=== PATIENT | female | born 1990 | race Caucasian/White ===

== ENCOUNTER 2018-06-09 21:01 | Inpatient (IN) | payer MEDICAID, OTHER ==
[2018-06-09 21:02] VITALS: BMI 25.2
[2018-06-09] MEDS ORDERED: Sodium Chloride 0.9% 1,000 ML IV ONE (21:46)
--- NOTE | 2018-06-09 21:46 | C.PDOC ---
History Of Present Illness 28 year old female presents to the ED c/o RUQ abdominal pain radiating to her back for the past 2 days. Patient denies fever, chills, nausea, vomit, diarrhea, dysuria, hematuria. Time Seen by Provider: 06/09/18 21:45 Chief Complaint (Nursing): Abdominal Pain History Per: Patient History/Exam Limitations: no limitations Onset/Duration Of Symptoms: Days Current Symptoms Are (Timing): Still Present Location Of Pain/Discomfort: RUQ Radiation Of Pain To:: Back Quality Of Discomfort: "Pain" Associated Symptoms: denies: Nausea, Vomiting, Diarrhea, Urinary Symptoms Recent travel outside of the [place]: No Additional History Per: Patient Abnormal Vaginal Bleeding: No Past Medical History Reviewed: Historical Data, Nursing Documentation, Vital Signs Vital Signs: Last Vital Signs Temp 98.2 F 06/09/18 21:27 Pulse 59 L 06/09/18 21:27 Resp 18 06/09/18 21:27 BP 116/78 06/09/18 21:27 Pulse Ox 100 06/09/18 21:27 - Medical History PMH: No Chronic Diseases Surgical History: No Surg Hx Family History: States: Unknown Family Hx - Social History Hx Alcohol Use: No Hx Substance Use: No - Immunization History Hx Tetanus Toxoid Vaccination: No Hx Influenza Vaccination: No Hx Pneumococcal Vaccination: No Review Of Systems Constitutional: Negative for: Fever, Chills Cardiovascular: Negative for: Chest Pain, Palpitations Respiratory: Negative for: Shortness of Breath Gastrointestinal: Positive for: Abdominal Pain. Negative for: Nausea, Vomiting, Diarrhea Genitourinary: Negative for: Dysuria Musculoskeletal: Positive for: Back Pain Skin: Negative for: Rash Neurological: Negative for: Weakness, Numbness Physical Exam - Physical Exam Appears: Non-toxic, No Acute Distress Skin: Warm, Dry Head: Normacephalic Eye(s): bilateral: Normal Inspection Oral Mucosa: Moist Neck: Supple Chest: Symmetrical Cardiovascular: Rhythm Regular Respiratory: No Rales, No Rhonchi, No Wheezing Gastrointestinal/Abdominal: Soft, Tenderness (RUQ), No Guarding, No Rebound Back: No CVA Tenderness Extremity: Bilateral: Atraumatic, Normal Color And Temperature, Normal ROM Neurological/Psych: Oriented x3, Normal Speech, Normal Cognition Gait: Steady ED Course And Treatment - Laboratory Results Result Diagrams: 06/09/18 22:40 06/09/18 22:40 O2 Sat by Pulse Oximetry: 100 (ON RA) Pulse Ox Interpretation: Normal - CT Scan/US CT abd/pelvis Other Rad Studies (CT/US): Read By Radiologist, Radiology Report Reviewed CT/US Interpretation: CT SCAN OF THE ABDOMEN AND PELVIS WITH CONTRAST. CLINICAL HISTORY: Patient with 2 days of right upper quadrant colonic quadrant pain. No nausea or vomiting. TECHNIQUE: Multiple axial and coronal CT images were obtained through the abdomen and pelvis after administration of intravenous contrast material. COMMENTS: Distended, mildly thickened gallbladder. The liver is of uniform attenuation without mass or defect. There is no intra or extrahepatic biliary ductal dilatation. The spleen is normal. The pancreas is of normal contour and attenuation characteristics. There is no evidence of adrenal mass. Both kidneys demonstrate prompt and equal nephrograms. The kidneys are normal in size, shape and configuration. There is no evidence of renal or ureteral mass. No renal or ureteral calculi are identified. There is no hydroureter or hydronephrosis. No evidence for appendicitis. There is no bowel wall thickening. No evidence for small or large bowel obstruction. There is no evidence of abdominal ascites or lymphadenopathy. There is no evidence of intrinsic or extrinsic bladder mass. There is no pelvic ascites or lymphadenopathy. Images of the lung bases show no evidence of pleural or parenchymal mass. There are no pleural effusions. The bony structures are free of lytic or blastic lesions. IMPRESSION: Distended, mildly thickened gallbladder. Sonographic evaluation is suggested. Acute inflammatory pathology of the gallbladder is suspected. Constipation. Thank you for your kind referral of this patient. . Electronically signed on Jun 10, 2018 2:45:24 AM EDT by: Greg Tirado M.D., Certified by ABR, MSK, Neuroradiology Progress Note: Plan: - Labs. - IV fluids. - UA Disposition Discussed With : Thanh Velez Comment: accepted the pt on his service and took over thecare at 4 AM Doctor Will See Patient In The: ED Counseled Patient/Family Regarding: Studies Performed, Diagnosis - Disposition Disposition: HOSPITALIZED Disposition Time: 21:46 Condition: FAIR Forms: [facility] (Azeri) - POA Present On Arrival: None - Clinical Impression Clinical Impression: Acute cholecystitis - Scribe Statement The provider has reviewed the documentation as recorded by the Scribe Mark Live All medical record entries made by the Scribe were at my direction and personally dictated by me. I have reviewed the chart and agree that the record accurately reflects my personal performance of the history, physical exam, medical decision making, and the department course for this patient. I have also personally directed, reviewed, and agree with the discharge instructions and disposition. Decision To Admit - Pt Status Changed To: Hospital Disposition Of: Inpatient - Admit Certification Admit to Inpatient:: After my assessment, the patient will require hospitalization for at least two midnights. This is because of the severity of symptoms shown, intensity of services needed, and/or the medical risk in this patient being treated as an outpatient. - InPatient: Physician Admission Certification:: After my assessment, the patient will require hospitalization for at least two midnights. This is because of the severity of symptoms shown, intensity of services needed, and/or the medical risk in this patient being treated as an outpatient. - . Bed Request Type: Regular Admitting Physician: Thanh Velez Patient Diagnosis: Acute cholecystitis
[2018-06-09] MEDS ORDERED: Sodium Chloride 0.9% 1,000 ML ONE (22:35)
[2018-06-09 22:45] LABS: BASO % 0.5 % (0.0-2.0); EOS # 0.1 K/uL (0.0-0.7); EOS % 1.8 % (0.0-4.0); HEMOGLOBIN 12.9 g/dL (11.0-16.0); LYMPH # 2.5 K/uL (1.0-4.3); LYMPH % 35.1 % (20.0-40.0); MEAN CELL VOLUME 85.9 fL (81.0-99.0); MEAN CORPUSCULAR HEMOGLOBIN 27.4 pg (27.0-31.0); MEAN CORPUSCULAR HGB CONC 31.9 g/dL (33.0-37.0); MEAN PLATELET VOLUME 7.7 fL (7.2-11.7); MONO # 0.4 K/uL (0.0-0.8); MONO % 6.4 % (0.0-10.0); NEUT % 56.2 % (50.0-75.0); NRBC % 0.1 % (0.0-2.0); RBC 4.72 Mil/uL (3.80-5.20); WHITE BLOOD COUNT 7.1 K/uL (4.8-10.8)
[2018-06-09 22:54] LABS: INR 1.1; PROTHROMBIN TIME 11.9 SECONDS (9.7-12.2)
[2018-06-09 22:55] LABS: HCG,QUALITATIVE URINE NEGATIVE (NEGATIVE)
[2018-06-09 22:56] LABS: ALBUMIN 4.8 g/dL (3.5-5.0); BLOOD UREA NITROGEN 14 mg/dL (7-17); CALCIUM 9.5 mg/dl (8.6-10.4); GFR NON-AFRICAN AMERICAN > 60
[2018-06-09 22:57] LABS: ALB/GLOB RATIO 1.4 (1.0-2.1); ALT/SGPT 10 U/L (9-52); AST/SGOT 24 U/L (14-36); LIPASE 86 U/L (23-300)
[2018-06-09 22:59] LABS: SQUAMOUS EPITHIAL 3 /hpf (0-5); URINE BILIRUBIN NEGATIVE (NEGATIVE); URINE BLOOD 1+ (NEGATIVE); URINE CLARITY Clear (Clear); URINE COLOR Straw (YELLOW); URINE GLUCOSE (UA) NORMAL (Normal); URINE LEUKOCYTE ESTERASE NEG Leu/uL (Negative); URINE PROTEIN NEGATIVE (NEGATIVE); URINE UROBILINOGEN NORMAL mg/dL (0.2-1.0)
[2018-06-09] MEDS ORDERED: Iodixanol 320 MG/ML 100 ML BOTTLE IV ONE (23:15)
[2018-06-10] MEDS ORDERED: Piperacillin/Tazobact 3.375 gm 100 ML IVPB STA (04:10)
[2018-06-10] MEDS ORDERED: Morphine 4 MG/ML VIAL ONE (04:21)
[2018-06-10] MEDS ORDERED: Piperacillin/Tazobact 3.375 gm 100 ML IVPB ONE (04:21)
--- NOTE | 2018-06-10 04:39 | CP.PCM.HP ---
History of Present Illness - History of Present Illness History of Present Illness: General Surgery - Dr. Velez 28yo F w/ no PMH presenting to Ed w/ RUQ abdominal pain x2days. Pt describes the pain as a sharp pain located in the RUQ abdomen and radiating to the back, severe initially but improved to a 3/10 after pain medication. Pt states that she has had this pain before in the past but it went away after several hours and did not necessitate her to come to the hospital. She denies any nausea or vomiting, fevers or chills, SOB/chest pain, Diarrhea/Constipation, Dysuria/hematuria. PMH: Denies PSH: Denies No ETOH/No smoking NKDA Present on Admission - Present on Admission Any Indicators Present on Admission: No Review of Systems - Review of Systems All systems: reviewed and no additional remarkable complaints except (as per HPI) Past Patient History - Past Social History Smoking Status: Never Smoked - PSYCHIATRIC Hx Substance Use: No - SURGICAL HISTORY Hx Surgeries: No - ANESTHESIA Hx Anesthesia: No Meds Allergies/Adverse Reactions: Allergies Allergy/AdvReac Type Severity Reaction Status Date / Time No Known Allergies Allergy Verified 06/09/18 21:34 Physical Exam - Constitutional Appears: Well, No Acute Distress - Head Exam Head Exam: ATRAUMATIC, NORMAL INSPECTION, NORMOCEPHALIC - Eye Exam Eye Exam: Normal appearance - Respiratory Exam Respiratory Exam: NORMAL BREATHING PATTERN. absent: Respiratory Distress - Cardiovascular Exam Cardiovascular Exam: REGULAR RHYTHM - GI/Abdominal Exam GI & Abdominal Exam: Soft, Tenderness (RUQ abdomen). absent: Firm, Guarding, Rebound, Rigid - Neurological Exam Neurological exam: Alert, Oriented x3 - Psychiatric Exam Psychiatric exam: Normal Affect, Normal Mood - Skin Skin Exam: Dry, Intact Results - Vital Signs Recent Vital Signs: Last Vital Signs Temp 97.7 F 06/10/18 01:22 Pulse 57 L 06/10/18 01:22 Resp 14 06/10/18 01:22 BP 96/61 L 06/10/18 01:22 Pulse Ox 100 06/10/18 04:02 - Labs Result Diagrams: 06/09/18 22:40 06/09/18 22:40 Labs: Laboratory Results - last 24 hr 06/09/18 06/09/18 06/09/18 22:40 22:40 22:40 WBC 7.1 RBC 4.72 Hgb 12.9 Hct 40.5 MCV 85.9 MCH 27.4 MCHC 31.9 L RDW 14.0 Plt Count 428 H MPV 7.7 Neut % (Auto) 56.2 Lymph % (Auto) 35.1 [place] % (Auto) 6.4 Eos % (Auto) 1.8 Baso % (Auto) 0.5 Neut # (Auto) 4.0 Lymph # (Auto) 2.5 [place] # (Auto) 0.4 Eos # (Auto) 0.1 Baso # (Auto) 0.0 PT 11.9 INR 1.1 APTT 39 H Sodium Potassium Chloride Carbon Dioxide Anion Gap BUN Creatinine Est GFR ( Amer) Est GFR (Non-Af Amer) Random Glucose Calcium Total Bilirubin AST ALT Alkaline Phosphatase Total Protein Albumin Globulin Albumin/Globulin Ratio Lipase Urine Color Straw Urine Clarity Clear Urine pH 5.0 Ur Specific [place] 1.008 Urine Protein Negative Urine Glucose (UA) Normal Urine Ketones Negative Urine Blood 1+ H Urine Nitrate Negative Urine Bilirubin Negative Urine Urobilinogen Normal Ur Leukocyte Esterase Neg Urine WBC (Auto) 1 Urine RBC (Auto) 6 H Ur Squamous Epith Cells 3 Urine HCG, Qual Negative 06/09/18 22:40 WBC RBC Hgb Hct MCV MCH MCHC RDW Plt Count MPV Neut % (Auto) Lymph % (Auto) [place] % (Auto) Eos % (Auto) Baso % (Auto) Neut # (Auto) Lymph # (Auto) [place] # (Auto) Eos # (Auto) Baso # (Auto) PT INR APTT Sodium 140 Potassium 3.9 Chloride 103 Carbon Dioxide 27 Anion Gap 13 BUN 14 Creatinine 0.6 L Est GFR ( Amer) > 60 Est GFR (Non-Af Amer) > 60 Random Glucose 93 Calcium 9.5 Total Bilirubin 0.4 AST 24 ALT 10 Alkaline Phosphatase 72 Total Protein 8.1 Albumin 4.8 Globulin 3.4 Albumin/Globulin Ratio 1.4 Lipase 86 Urine Color Urine Clarity Urine pH Ur Specific [place] Urine Protein Urine Glucose (UA) Urine Ketones Urine Blood Urine Nitrate Urine Bilirubin Urine Urobilinogen Ur Leukocyte Esterase Urine WBC (Auto) Urine RBC (Auto) Ur Squamous Epith Cells Urine HCG, Qual - Imaging and Cardiology CT scan - abdomen Status: Image reviewed by me, Report reviewed by me (distended mildly thickened GB) Assessment & Plan - Assessment and Plan (Free Text) Assessment: 28 yo F w/ biliary colic, probable acute cholecystitis -Admit to surgical service -NPO, IVF, Pain control PRN -U/S to further assess gallbladder/stones -Plan for likely OR later today DW Dr. Agustin Rush PGY4
[2018-06-10] MEDS: Sodium Chloride 0.9% 1,000 ML IV SCH ×2 (06:07→14:29)
--- NOTE | 2018-06-10 07:40 | CT ---
CT abdomen and pelvis HISTORY: Right upper quadrant abdominal pain. COMPARISON: None available. TECHNIQUE: Multiple contiguous axial images were performed through the abdomen and pelvis with the use of intravenous contrast. Subsequently, sagittal and coronal reformatted images were obtained. This CT exam was performed using one or more of the following dose reduction techniques: Automated exposure control, adjustment of the mA and/or kV according to patient size, and/or use of iterative reconstruction technique. Findings: Mild atelectasis at the lung bases. No pleural or pericardial effusion. Liver is preserved. Distended gallbladder with associated gallbladder calculi, gallbladder wall thickening, pericholecystic fluid. These findings are concerning for a possible acute cholecystitis. Spleen is preserved. Adrenal glands are preserved. Pancreas is preserved. Upper abdominal bowel is preserved. Right kidney: No calculi or hydronephrosis. Left Kidney: No calculi or hydronephrosis. 6 millimeter hypoattenuated lesion in the midpole of the left kidney, too small to adequately characterize. Urinary bladder is grossly preserved. Heterogeneous uterus and bilateral adnexa. Fecal retention in the colon consistent with constipation. Appendix is visualized and within normal limits. Few shotty para-aortic and inguinal lymph nodes. Few shotty mesenteric lymph nodes. Degenerative changes in the spine. Impression: 1. Distended gallbladder with associated gallbladder calculi, gallbladder wall thickening, and pericholecystic fluid. These findings are concerning for a possible acute cholecystitis. Clinical correlation. Correlation with right upper quadrant abdominal ultrasound may be helpful if clinically indicated. 2. 6 millimeter hypoattenuated lesion in the midpole of the left kidney, too small to adequately characterize. This may be better evaluated with multiphasic contrast enhanced CT or MR if clinically indicated. 3. Fecal retention in the colon consistent with constipation. A preliminary report was generated at 2:54 a.m. on 06/10/[address] Greg Tirado from [facility].
--- NOTE | 2018-06-10 09:12 | US ---
Right upper quadrant abdominal ultrasound COMPARISON: CT scan dated 06/10/2018 FINDINGS: Liver: 18.4 centimeters in length. Normal echogenicity. Gallbladder: Cholelithiasis. Gallbladder wall thickening up to 4 millimeters. Associated gallbladder wall edema. Sonographic Newman's sign could not be well assessed as the patient was given pain medication. Pericholecystic fluid. Common bile duct measures 4.5 millimeters, within normal limits. Limited visualization of the pancreas. Visualized aorta and IVC are grossly preserved. Right kidney: 8.9 x 3.9 x 4.0 centimeters. No calculi or hydronephrosis. The IMPRESSION: Cholelithiasis with gallbladder wall thickening and edema and pericholecystic fluid. These findings are concerning for possible acute cholecystitis. Clinical correlation. Limited visualization of the pancreas.
[2018-06-11] MEDS ORDERED: Lactated Ringer's 1,000 ML IV ONE ×2 (00:08→21:18)
[2018-06-11] MEDS: Sodium Chloride 0.9% 1,000 ML IV SCH ×2 (02:21→21:27)
[2018-06-11 06:47] LABS: MEAN CELL VOLUME 86.5 fL (81.0-99.0); MEAN CORPUSCULAR HEMOGLOBIN 28.2 pg (27.0-31.0); MEAN CORPUSCULAR HGB CONC 32.6 g/dL (33.0-37.0); MEAN PLATELET VOLUME 7.4 fL (7.2-11.7); RBC 3.71 Mil/uL (3.80-5.20); RED CELL DISTRIBUTION WIDTH 14.1 % (11.5-14.5); WHITE BLOOD COUNT 3.7 K/uL (4.8-10.8)
[2018-06-11 06:50] LABS: HEMOGLOBIN 10.5 g/dL (11.0-16.0)
[2018-06-11 06:51] LABS: INR 1.3; PROTHROMBIN TIME 13.7 SECONDS (9.7-12.2)
[2018-06-11 07:26] LABS: ALB/GLOB RATIO 1.3 (1.0-2.1); ALBUMIN 2.9 g/dL (3.5-5.0); ALT/SGPT 14 U/L (9-52); AST/SGOT 16 U/L (14-36); BLOOD UREA NITROGEN 8 mg/dL (7-17); CALCIUM 7.9 mg/dl (8.6-10.4); GFR NON-AFRICAN AMERICAN > 60
[2018-06-11] MEDS ORDERED: Propofol 10 mg/ml Inj (20 ML) ONE (10:55)
[2018-06-11] MEDS ORDERED: Succinylcholine Chloride 20 mg/ml Syr (5 ml) IV ONE (10:55)
[2018-06-11] MEDS ORDERED: Midazolam 2 MG/2 ML VIAL ONE (10:55)
[2018-06-11] MEDS ORDERED: Rocuronium 10 mg/ml (5 ml) ONE (10:56)
[2018-06-11] MEDS ORDERED: ceFAZolin 1 gm in NS 1 GM/100 ML BAG IVPB ONE (11:08)
[2018-06-11] MEDS ORDERED: Bupivacaine-Epi 0.5%-1:200,000 PF Inj ONE (11:09)
[2018-06-11] MEDS ORDERED: Neostigmine 1:1000 (1 mg/ml) Inj ONE (11:21)
--- NOTE | 2018-06-11 11:52 | PCM.SURG1 ---
Surgeon's Initial Post Op Note - Surgeon's Notes Surgeon: MD Agustin Supervisor Sewing Room: Jud PGY3 Pre-Operative Diagnosis: Acute cholecystitis Operative Findings: Inflammed gallbladder Post-Operative Diagnosis: Acute Cholecystitis Operation Performed: Laparoscopic Cholecystectomy Specimen/Specimens Removed: gallbladder Estimated Blood Loss: EBL {In ML}: 10 Date of Surgery/Procedure: 06/11/18 Time of Surgery/Procedure: 11:00
[2018-06-11] MEDS ORDERED: HYDROmorphone 0.5 mg/0.5 ml ISec IVP PRN (11:53)
[2018-06-11] MEDS ORDERED: Oxycodone/Acetaminophen 5/325 mg Tab PO PRN (11:54)
--- NOTE | 2018-06-11 11:58 | CP.PCM.DIS ---
Provider - Provider Date of Admission: 06/10/18 04:00 Attending physician: Thanh Velez MD Time Spent in preparation of Discharge (in minutes): 40 Hospital Course - Lab Results Lab Results: Micro Results 06/10/18 09:09 Blood-Venous Blood Culture - Preliminary NO GROWTH AFTER 24 HOURS 06/10/18 09:04 Blood-Venous Blood Culture - Preliminary NO GROWTH AFTER 24 HOURS Most Recent Lab Values WBC 3.7 K/uL (4.8-10.8) L 06/11/18 06:35 RBC 3.71 Mil/uL (3.80-5.20) L 06/11/18 06:35 Hgb 10.5 g/dL (11.0-16.0) L D 06/11/18 06:35 Hct 32.1 % (34.0-47.0) L 06/11/18 06:35 MCV 86.5 fL (81.0-99.0) 06/11/18 06:35 MCH 28.2 pg (27.0-31.0) 06/11/18 06:35 MCHC 32.6 g/dL (33.0-37.0) L 06/11/18 06:35 RDW 14.1 % (11.5-14.5) 06/11/18 06:35 Plt Count 324 K/uL (130-400) D 06/11/18 06:35 MPV 7.4 fL (7.2-11.7) 06/11/18 06:35 Neut % (Auto) 56.2 % (50.0-75.0) 06/09/18 22:40 Lymph % (Auto) 35.1 % (20.0-40.0) 06/09/18 22:40 [place] % (Auto) 6.4 % (0.0-10.0) 06/09/18 22:40 Eos % (Auto) 1.8 % (0.0-4.0) 06/09/18 22:40 Baso % (Auto) 0.5 % (0.0-2.0) 06/09/18 22:40 Neut # (Auto) 4.0 K/uL (1.8-7.0) 06/09/18 22:40 Lymph # (Auto) 2.5 K/uL (1.0-4.3) 06/09/18 22:40 [place] # (Auto) 0.4 K/uL (0.0-0.8) 06/09/18 22:40 Eos # (Auto) 0.1 K/uL (0.0-0.7) 06/09/18 22:40 Baso # (Auto) 0.0 K/uL (0.0-0.2) 06/09/18 22:40 PT 13.7 SECONDS (9.7-12.2) H 06/11/18 06:35 INR 1.3 06/11/18 06:35 APTT 39 SECONDS (21-34) H 06/11/18 06:35 Sodium 137 mmol/L (132-148) 06/11/18 06:35 Potassium 3.5 mmol/L (3.6-5.2) L 06/11/18 06:35 Chloride 108 mmol/L (98-107) H 06/11/18 06:35 Carbon Dioxide 27 mmol/L (22-30) 06/11/18 06:35 Anion Gap 6 (10-20) L 06/11/18 06:35 BUN 8 mg/dL (7-17) 06/11/18 06:35 Creatinine 0.6 mg/dL (0.7-1.2) L 06/11/18 06:35 Est GFR ( Amer) > 60 06/11/18 06:35 Est GFR (Non-Af Amer) > 60 06/11/18 06:35 Random Glucose 81 mg/dL (65-105) 06/11/18 06:35 Calcium 7.9 mg/dl (8.6-10.4) L 06/11/18 06:35 Phosphorus 2.9 mg/dL (2.5-4.5) 06/11/18 06:35 Magnesium 1.9 mg/dL (1.6-2.3) 06/11/18 06:35 Total Bilirubin 1.0 mg/dL (0.2-1.3) 06/11/18 06:35 Direct Bilirubin 0.0 mg/dL (0.0-0.4) 06/11/18 06:35 AST 16 U/L (14-36) 06/11/18 06:35 ALT 14 U/L (9-52) 06/11/18 06:35 Alkaline Phosphatase 57 U/L (38-126) 06/11/18 06:35 Total Protein 5.2 g/dL (6.3-8.3) L 06/11/18 06:35 Albumin 2.9 g/dL (3.5-5.0) L D 06/11/18 06:35 Globulin 2.3 gm/dL (2.2-3.9) 06/11/18 06:35 Albumin/Globulin Ratio 1.3 (1.0-2.1) 06/11/18 06:35 Lipase 86 U/L (23-300) 06/09/18 22:40 Urine Color Straw (YELLOW) 06/09/18 22:40 Urine Clarity Clear (Clear) 06/09/18 22:40 Urine pH 5.0 (5.0-8.0) 06/09/18 22:40 Ur Specific [place] 1.008 (1.003-1.030) 06/09/18 22:40 Urine Protein Negative mg/dL (NEGATIVE) 06/09/18 22:40 Urine Glucose (UA) Normal mg/dL (Normal) 06/09/18 22:40 Urine Ketones Negative mg/dL (NEGATIVE) 06/09/18 22:40 Urine Blood 1+ (NEGATIVE) H 06/09/18 22:40 Urine Nitrate Negative (NEGATIVE) 06/09/18 22:40 Urine Bilirubin Negative (NEGATIVE) 06/09/18 22:40 Urine Urobilinogen Normal mg/dL (0.2-1.0) 06/09/18 22:40 Ur Leukocyte Esterase Neg Joni/uL (Negative) 06/09/18 22:40 Urine WBC (Auto) 1 /hpf (0-5) 06/09/18 22:40 Urine RBC (Auto) 6 /hpf (0-3) H 06/09/18 22:40 Ur Squamous Epith Cells 3 /hpf (0-5) 06/09/18 22:40 Urine HCG, Qual Negative (NEGATIVE) 06/11/18 09:16 Blood Type O POSITIVE 06/11/18 06:35 Antibody Screen Negative 06/11/18 06:35 - Hospital Course Hospital Course: 28F presented with cholecystitis. underwent lap cholecystectomy without complications. Doing well post - op. Discharge Exam - Head Exam Head Exam: ATRAUMATIC, NORMAL INSPECTION, NORMOCEPHALIC - Respiratory Exam Respiratory Exam: Clear to PA & Lateral, NORMAL BREATHING PATTERN - Cardiovascular Exam Cardiovascular Exam: REGULAR RHYTHM, +S1, +S2 - GI/Abdominal Exam GI & Abdominal Exam: Soft, Tenderness (mild). absent: Distended, Firm, Guarding, Rebound, Rigid Additional comments: incision CDI - Neurological Exam Neurological exam: Alert - Skin Skin Exam: Dry, Normal Color, Warm Discharge Plan - Discharge Medications Prescriptions: oxyCODONE/Acetaminophen [Percocet 5/325 mg Tab] 1 tab PO Q4 #20 tab - Follow Up Plan Condition: FAIR Disposition: HOME/ ROUTINE Instructions: Cholecystectomy, Laparoscopic Surgery Additional Instructions: 1) Please follow up with Dr. Velez outpatient in one week, Wednesday 2) May shower but do not bath 3) Continue home diet as usual 4) Take prescriptions as directed 5) Recommend no heavy lifting of more than 10-20lb for 4 weeks Referrals: Thanh Velez MD [Staff Provider] -
[2018-06-11] MEDS ORDERED: Sodium Chloride 0.9% 1,000 ML IV ONE (12:42)
[2018-06-11] MEDS: Oxycodone/Acetaminophen 5/325 mg Tab PO PRN (19:02)
[2018-06-11 21:29] VITALS: O2SAT 98
--- NOTE | 2018-06-12 03:47 | OP ---
PROCEDURE DATE: 06/11/2018 PREOPERATIVE DIAGNOSIS: Acute cholecystitis. POSTOPERATIVE DIAGNOSIS: Acute cholecystitis. OPERATION PERFORMED: Laparoscopic cholecystectomy. SURGEON: Thanh Velez MD ASSISTANT FIELD HOCKEY COACH: Johnathan Renner DO, PGY-3 ANESTHESIOLOGIST: Kyle Lawler DO ANESTHESIA: General. ESTIMATED BLOOD LOSS: 20 mL. DESCRIPTION OF PROCEDURE: Upon sedation and intubation, the patient's abdomen was prepped and draped in the usual sterile fashion. A 11 mm infraumbilical incision was made vertically. The Veress needle was used to enter the abdomen. Entering pressure was 1 mmHg. Abdomen was insufflated to a pressure of 15 mmHg. Upon insufflation, the abdomen was entered using a Visiport system where the camera is within the trocar entered into the abdomen upon direct visualization. Upon entering the abdomen, a camera was used to visualize the gallbladder and its surroundings. It was noted that the gallbladder had a lot of inflammation and adhesions around it. Two more trocars were placed; one subxiphoid and one in the right subcostal region. The gallbladder was grasped at its fundus and retracted cephalad. Dissection with the [place] started in the middle of the gallbladder with peritoneum being peeled off the gallbladder until tubular structures were seen entering into the gallbladder directly. Cystic duct was dissected out and skeletonized using [place] dissector. Care was then taken to the cystic artery which was also skeletonized using the [place]. Both structures were seen directly entering the gallbladder, between both structures was the liver bed which was directly seen. Upon achieving the critical view of safety, two clips were placed distally on the cystic duct and one placed proximally on the cystic duct. Laparoscopic scissors were used to trisect the cystic duct in between. Furthermore, two clips were placed distally on the cystic artery and one proximally on the cystic artery. Laparoscopic scissors were used to trisect the cystic artery also. Upon trisection of both the cystic duct and cystic artery, electrocautery was used to dissect the gallbladder off the liver bed. Care was taken to minimize the bleeding, and the bleeding was taken care with electrocautery. Gallbladder was placed in an EndoCatch bag and removed through the umbilical incisions upon direct visualization. Stone was palpable in the gallbladder. Gallbladder fascia was irrigated and suctioned, so clear fluid was seen coming out of the suction tubing. Trocars were removed upon direct visualization, and the abdomen was deflated. The infraumbilical fascial incision was closed with 0 Vicryl in a [id number] manner. All the three incisions were closed with 4-0 Monocryl. Dermabond was used as topical dressing. The patient tolerated the procedure well and was awakened from anesthesia and transported to the postoperative anesthesia care unit. There were no complications, and estimated blood loss was 20 mL. Johnathan Renner DO Thanh Velez MD
[2018-06-12] MEDS: Oxycodone/Acetaminophen 5/325 mg Tab PO PRN (04:43)
[2018-06-12 08:07] LABS: HEMOGLOBIN 10.9 g/dL (11.0-16.0); MEAN CELL VOLUME 85.9 fL (81.0-99.0); MEAN CORPUSCULAR HGB CONC 32.6 g/dL (33.0-37.0); MEAN PLATELET VOLUME 7.7 fL (7.2-11.7); RBC 3.91 Mil/uL (3.80-5.20); RED CELL DISTRIBUTION WIDTH 14.2 % (11.5-14.5)
[2018-06-12 08:17] LABS: WHITE BLOOD COUNT 11.9 K/uL (4.8-10.8)
[2018-06-12 08:24] LABS: ALB/GLOB RATIO 1.3 (1.0-2.1); ALBUMIN 3.3 g/dL (3.5-5.0); ALT/SGPT 87 U/L (9-52); AST/SGOT 80 U/L (14-36); BLOOD UREA NITROGEN 9 mg/dL (7-17); CALCIUM 8.5 mg/dl (8.6-10.4); GFR NON-AFRICAN AMERICAN > 60
[2018-06-12 16:15] VITALS: BP 114/75; PULSE 59; RESP 20; TEMP 97.9
[2018-06-13] MEDS ORDERED: Potassium Chloride 10 mEq ER Tab PO ONE (09:01)
== END 2018-06-12 21:00 | disposition home or self-care (01) | DRG 263 ==
LOC: C.ER 21:01 → C.5S 06-10 04:00
PROVIDERS: ADMIT Surgery; ATTEND Surgery
PROC: 0FT44ZZ Resection of Gallbladder, Percutaneous Endoscopic Approach (ICD-10-PCS; principal; 2018-06-11 10:00)
DX: K80.12 Calculus of gallbladder with acute and chronic cholecystitis without obstruction (principal)

== ENCOUNTER 2018-07-17 10:50 | Emergency (ER) | payer MEDICAID, OTHER ==
[2018-07-17 11:04] VITALS: RESP 18
--- NOTE | 2018-07-17 11:59 | C.PDOC ---
History Of Present Illness 28 year old female presents to ED with complaint of itchy rash to the abdomen for the past 2 days. Patient had a cholecystectomy 1 month ago. She states that she applied a cream and peroxide to the skin which she thinks caused the rash. Patient denies nausea, vomiting, and fever. Time Seen by Provider: 07/17/18 11:00 Chief Complaint (Nursing): Abnormal Skin Integrity History Per: Patient History/Exam Limitations: no limitations Onset/Duration Of Symptoms: Days (2) Current Symptoms Are (Timing): Still Present Location Of Injury: Anterior: Abdomen (rash) Quality Of Symptoms: Itching Past Medical History Reviewed: Historical Data, Nursing Documentation, Vital Signs Vital Signs: Last Vital Signs Temp 98.4 F 07/17/18 11:01 Pulse 61 07/17/18 11:01 Resp 18 07/17/18 11:01 BP 100/68 07/17/18 11:01 Pulse Ox 100 07/17/18 11:01 - Medical History PMH: No Chronic Diseases Surgical History: Cholecystectomy - [facility] Procedures RESECTION OF GALLBLADDER, PERCUTANEOUS ENDOSCOPIC APPROACH (06/10/18) Family History: States: Unknown Family Hx - Social History Hx Alcohol Use: No Hx Substance Use: No - Immunization History Hx Tetanus Toxoid Vaccination: No Hx Influenza Vaccination: No Hx Pneumococcal Vaccination: No Review Of Systems Except As Marked, All Systems Reviewed And Found Negative. Constitutional: Negative for: Fever, Chills, Weakness Gastrointestinal: Negative for: Nausea, Vomiting Skin: Positive for: Rash (abdomen ) Physical Exam - Physical Exam Appears: Non-toxic, No Acute Distress Skin: Warm, Dry, Other ((+) healed surgical scars to the abdomen with urticarial rash) Head: Atraumatic, Normacephalic Eye(s): bilateral: Normal Inspection, PERRL, EOMI Oral Mucosa: Moist Tongue: Normal Appearing, No Swelling Lips: Normal Appearing, No Swelling Throat: No Erythema, No Exudate Neck: Normal ROM Chest: Symmetrical, No Tenderness Cardiovascular: Rhythm Regular, No Friction Rub, No Murmur Gastrointestinal/Abdominal: Soft, No Tenderness Extremity: Normal ROM, No Tenderness, No Swelling Neurological/Psych: Normal Motor Gait: Steady ED Course And Treatment O2 Sat by Pulse Oximetry: 100 (in RA) Pulse Ox Interpretation: Normal Medical Decision Making Medical Decision Making: Plan: Benadryl PO Prednisone PO Disposition - Disposition Referrals: [facility] [Outside] [facility] [Outside] Disposition: HOME/ ROUTINE Disposition Time: 12:14 Condition: GOOD Additional Instructions: Follow up with the medical doctor within 1-2 days. Return if worsened. Prescriptions: DiphenhydrAMINE [Benadryl] 25 mg PO QID #28 cap Famotidine [Pepcid] 20 mg PO DAILY #7 tab predniSONE [Prednisone] 20 mg PO BID #10 tab Instructions: Contact Dermatitis (DC) Forms: [facility] (Japanese) Print Language: SLOVENIAN - Clinical Impression Clinical Impression: Allergic contact dermatitis - PA / CREDIT DEPARTMENT MANAGER / Resident Statement MD/DO has reviewed & agrees with the documentation as recorded. (Lorraine De) - Scribe Statement The provider has reviewed the documentation as recorded by the Scribe (Lorraine De) All medical record entries made by the Scribe were at my direction and personally dictated by me. I have reviewed the chart and agree that the record accurately reflects my personal performance of the history, physical exam, medical decision making, and the department course for this patient. I have also personally directed, reviewed, and agree with the discharge instructions and disposition.
[2018-07-17 12:48] VITALS: BP 105/64; PULSE 67; TEMP 98.7
[2018-07-17 21:55] VITALS: O2SAT 100
== END 2018-07-17 12:47 | disposition home or self-care (01) ==
LOC: C.ER 10:50
DX: L23.9 Allergic contact dermatitis, unspecified cause (principal)